=== PATIENT | male | born 1955 | race Caucasian/White ===

== ENCOUNTER 2021-01-10 14:57 | Emergency (ER) | payer MEDICARE, SELFPAY ==
--- NOTE | ~2021-01-10 | XR_ITS ---
Indication: Choking on foreign body EXAMINATION: Soft tissue neck and 2 view chest x-ray. Comparison chest film dated 08/03/2008 2 views of the soft tissue neck do not demonstrate convincing evidence for radiopaque foreign body. The glottis is within normal limits. 2 views of the chest do not demonstrate evidence for foreign body. No infiltrate or effusion. The cardiac silhouette is within normal limits. The hilar structures do not appear pathologically enlarged. There is no effusion. Flowing osteophytes in the thoracic spine. No compression injury XR/XR soft tissue neck IMPRESSION: No radiopaque foreign body is seen. The lung monsivais are grossly clear.
--- NOTE | ~2021-01-10 | XR_ITS ---
Indication: Choking on foreign body EXAMINATION: Soft tissue neck and 2 view chest x-ray. Comparison chest film dated 08/03/2008 2 views of the soft tissue neck do not demonstrate convincing evidence for radiopaque foreign body. The glottis is within normal limits. 2 views of the chest do not demonstrate evidence for foreign body. No infiltrate or effusion. The cardiac silhouette is within normal limits. The hilar structures do not appear pathologically enlarged. There is no effusion. Flowing osteophytes in the thoracic spine. No compression injury XR/XR chest 2V IMPRESSION: No radiopaque foreign body is seen. The lung monsivais are grossly clear.
[2021-01-10 15:05] VITALS: BP 130/90; BP 160/76; PULSE 75; PULSE 88; RESP 16; TEMP 36.8; O2SAT 97; O2SAT 99; BMI 33.9
[2021-01-10 15:42] VITALS: BP 160/76; PULSE 75; RESP 16; TEMP 36.8; O2SAT 97
--- NOTE | 2021-01-10 16:19 | PC.NURSE ---
pt from home via EMS. He [place], ate sweet peas and states one is stuck in his throat. He arrives alert, oriented, ambulatory. Lung sounds are clear bilaterally with no wheezing or stridor. He has been managing his own secretions and has an occasional cough that leads to gagging but has been non productive. Pt awaits eval
[2021-01-10 16:40] VITALS: BP 151/66; PULSE 65; RESP 15; O2SAT 97
[2021-01-10] MEDS: Lidocaine HCl Viscous 2 % 15 ML SOLUTION MUCOUS MEM (16:41)
--- NOTE | 2021-01-10 17:06 | ED.SKABFB ---
HPI - Skin/Abscess/Foreign Bdy General Chief complaint: General Medical Stated complaint: choked on a pea Time Seen by Provider: 01/10/21 16:19 Source: patient Mode of arrival: ambulatory Limitations: no limitations History of Present Illness HPI narrative: 65-year-old male presenting to the ED with complaints of questioning foreign body in his throat after he ate a handful of sweet pees prior to arrival. He reports he feels like it is Stuck in his throat. Denies any other symptoms complaints or concerns or injuries at this time. 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) Location: neck Severity: moderate Quality: foreign body sensation Pain Consistency: constant Relieving factors: none Exacerbating factors: other (swallowing ) Context: other (eating a sweet pea) Associated symptoms: denies other symptoms Treatments prior to arrival: none Related Data Allergies Allergy/AdvReac Type Severity Reaction Status Date / Time No Known Allergies Allergy Mild NOT Verified 01/10/21 15:04 APPLICABLE Review of Systems Review of Systems: Constitutional : No Fever, No Chills, Cardiovascular : No Chest Pain, No SOB Respiratory : No Dyspnea Gastrointestinal : No abdominal pain Musculoskeletal : No Joint Swelling Skin : positive Foreign body sensation in throat possibly a sweet Pea, No skin laceration, No rash, No surrounding erythema Neuro : No Weakness, No Numbness/tingling Psych : No SI/HI/thoughts of self injury Yes all other systems are reviewed and are negative [facility] Past Medical History Attestation statement: The following information was validated with the patient. Medical History Diabetes Heart attack HTN (hypertension) Social History Social History Alcohol intake: never Patient Tobacco Use Status: Never used Tobacco Smoked in Last 30 Days: No Use of substances other than those prescribed or required for medical reasons: No Advance Directives: No Advance Directives Information Provided: Yes Physical Exam Vital Signs: Vital Signs: Last Vital Signs Temp 98.2 F 01/10/21 15:42 Pulse 65 01/10/21 16:40 Resp 15 01/10/21 16:40 BP 151/66 H 01/10/21 16:40 Pulse Ox 97 01/10/21 16:40 Body Mass Index 33.9 vital signs have been reviewed as normal and appeared to be correct. Blood pressure hypertensive at 160/76. Heart rate normal. Respiration rate normal. Temperature normal. Oxygen saturation normal. Appearance: Alert. Oriented X3. No acute distress. Head: Normal external exam. Normocephalic. Atraumatic. Eyes: PERRLA. EOMI. Conjunctiva and sclera normal. Eyelids normal. ENT: no foreign bodies noted. Pharynx normal. Uvula midline. Moist mucous membranes. No trismus noted. No drooling noted. No muffled voice noted. Neck: Normal inspection. Neck supple. FROM. No adenopathy. Thyroid Normal. No meningeal signs. No neck mass noted. CVS: Normal heart rate and rhythm. Heart sound normal. Pulses normal throughout. No murmurs/rales/gallops. Respiratory: No respiratory distress. Painless inspiration. Breath sounds normal. No wheezes/rales/rhonchi noted. Chest nontender. No accessory muscle usage noted or decreased air movement noted. Abdomen: Soft and nontender. Bowel sounds normal in all 4 quadrants. No distention noted. No organomegaly noted. No visible injury noted. Back: Full range of motion noted. No rashes/lesion/induration/fluctuance or signs of infection noted. Skin: Skin warm and dry. Normal skin color. Normal skin turgor. No rashes/lesions/lacerations noted. Extremities: Extremities exhibit normal range of motion. Extremities nontender. Neuro: Oriented X 3. No motor deficit. No sensory deficit. Reflexes normal. Normal steady gait. No focal neuro deficits noted. Course Course Course Narrative: 65-year-old male presenting to the ED with complaints of a question of a foreign body of a sweet Pea in his throat after he ate a handful at the [employer]. on exam patient is alert and oriented x3. Tolerating his secretions well. Oxygen saturation is at 97% on room air. No trismus /drooling or foreign bodies noted. No wheezing or stridor is noted. Tolerating his secretions well. X-ray obtained and negative for any foreign bodies. Gave the patient viscous lidocaine and he reports mild symptomatic relief. Will DC home instructions return if any new or worsening symptoms to follow up with primary care provider. Patient understands agrees the plan. MDM - Skin/Abscess/Foreign Bdy Medical Records Attestation: I reviewed the patient's medical records. Imaging Data soft tissue neck/cxr: Attestation: I personally reviewed and interpreted this imaging study as follows: Radiologist's impression: Comparison chest film dated 08/03/2008 2 views of the soft tissue neck do not demonstrate convincing evidence for radiopaque foreign body. The glottis is within normal limits. 2 views of the chest do not demonstrate evidence for foreign body. No infiltrate or effusion. The cardiac silhouette is within normal limits. The hilar structures do not appear pathologically enlarged. There is no effusion. Flowing osteophytes in the thoracic spine. No compression injury XR/XR soft tissue neck IMPRESSION: No radiopaque foreign body is seen. The lung monsivais are grossly clear. Discharge Plan Discharge Clinical Impression: Normal exam Patient Disposition: Home, Self-Care Instructions: Normal Exam (ED), Foreign Body Ingestion (ED) Referrals: Physician,Unknown [Primary Care Provider] - 2 days (your pcp) Print Language: Yoruba
== END 2021-01-10 17:27 | disposition home or self-care (01) ==
PROVIDERS: Emergency Provider Emergency Medicine Emergency Medical Services
DX: Z03.89 Encounter for observation for other suspected diseases and conditions ruled out (principal)
CPT/HCPCS: 70360; 71046; 99283; 99284

== ENCOUNTER 2021-04-16 16:53 | Emergency (ER) | payer MEDICARE, SELFPAY ==
--- NOTE | ~2021-04-16 | XR_ITS ---
EXAMINATION: XR FOOT, LEFT CLINICAL INFORMATION: Redness. Evaluate for osteomyelitis. COMPARISON: No similar priors. TECHNIQUE: AP, lateral, and oblique views of the left foot. FINDINGS: There is asymmetric soft tissue edema in the medial surface of the foot without evidence of subcutaneous gas or radiopaque foreign bodies. There are subtle cortical irregularities in the base of the fifth metatarsal bone and first tarsometatarsal joint of uncertain etiology and possibly related with proliferative degenerative changes. No acute fractures. Joint alignment is anatomic. Calcaneal spurs. Vascular calcifications. XR/XR foot LT 2V IMPRESSION: Cortical irregularity within the base of the fifth metatarsal bone and first tarsometatarsal joint could be chronic and related with degenerative changes. However, superimposed infection is difficult to exclude. If clinical concerning for osteomyelitis remains elevated, consider further evaluation with a MRI of the left foot.
[2021-04-16 19:20] VITALS: BP 158/72; PULSE 73; RESP 20; TEMP 36.9; O2SAT 98; BMI 33.9
[2021-04-16 20:53] VITALS: BP 165/59; PULSE 67; RESP 20; TEMP 36.8; O2SAT 100
--- NOTE | 2021-04-16 21:54 | ED_ITS ---
HPI - General Adult General Chief complaint: Skin/Abscess/Foreign Body Stated complaint: Burn to left foot Source: patient Mode of arrival: ambulatory Limitations: no limitations History of Present Illness HPI narrative: Patient presents to the ED for evaluation of left foot burn. Patient states hot coffee fell on his left foot which caused a second degree burn and now has become reddened and painful.. Patient denies any fever or chills. Patient is diabetic. Related Data Previous Rx's Medication Instructions Recorded cephalexin 500 mg capsule 500 mg PO QID #28 cap 04/17/21 doxycycline hyclate 100 mg tablet 100 mg PO BID #14 tab 04/17/21 Allergies Allergy/AdvReac Type Severity Reaction Status Date / Time No Known Allergies Allergy Mild NOT Verified 01/10/21 15:04 APPLICABLE Review of Systems Review of Systems: Yes all other systems are reviewed and are negative Constitutional: Constitutional: Reports as per HPI and Reports no additional constitutional complaints Eyes: Eyes: Reports as per HPI and Reports no additional eye complaints ENT: Reports system reviewed and no additional complaints, except as documented and Reports as per HPI Cardiovascular: Cardiovascular: Reports as per HPI and Reports no additional cardiovascular complaints Respiratory: Respiratory: Reports as per HPI and Reports no additional respiratory complaints Gastrointestinal: Gastrointestinal: Reports as per HPI and Reports no additional gastrointestinal complaints Genitourinary: Genitourinary: Reports no additional male genitourinary complaints and Reports as per HPI Musculoskeletal: Musculoskeletal: Reports no additional musculoskeletal complaints and Reports as per HPI Comments: left foot burn Integumentary/Breasts: Skin/Breast: Reports system reviewed and no additional complaints, except as docu and Reports as per HPI Neurologic: Reports system reviewed and no additional complaints, except as documented and Reports as per HPI Psychiatric: Psychiatric: Reports no additional psychiatric complaints and Reports as per HPI [facility] Past Medical History Medical History Diabetes Heart attack HTN (hypertension) Social History Social History Alcohol intake: never Patient Tobacco Use Status: Never used Tobacco Advance Directives: No Physical Exam Vital Signs: Vital Signs: Last Vital Signs Temp 98.2 F 04/16/21 20:53 Pulse 67 04/16/21 20:53 Resp 20 04/16/21 20:53 BP 165/59 H 04/16/21 20:53 Pulse Ox 100 04/16/21 20:53 Body Mass Index 33.9 Const: General: cooperative, healthy appearing, comfortable, no acute distress, well developed, alert, awake and Physically active Orientation/consciousness: patient oriented x3 HENMT: Head: Yes normal to inspection, Yes No palpable skull fracture present, Yes normocephalic, Yes atraumatic and No abrasion Eyes: General: appearance normal, both eyes and all related structures Neck: Neck: Yes normal visual inspection, Yes full ROM, Yes no lym phadenopathy, Yes no meningeal signs, Yes trachea midline, Yes supple and No tender Chest: Chest palpation & inspection: normal inspection of the chest and normal palpation of entire chest wall Resp: Effort & Inspection: normal respiratory effort and able to speak in complete sentences Cardio: Jugular venous distension: no JVD Heart sounds: S1 normal heart sound present and S2 normal heart sound present GI: Inspection: Yes normal to inspection and No abdominal wall ecchymosis Palpation (GI): not firm, nontender, no guarding and not rigid : General: No CVA tenderness and Yes no CVA tenderness Back/Spine/Pelvis: Back: no CVA tenderness, No CVA tenderness and No back tenderness Skin: General skin exam: no rashes or lesions noted and elasticity normal Neuro: General: patient oriented x3, gait normal, no meningeal signs and CN's II-XI intact bilaterally Cranial nerves: Yes CN's II-XII intact bilaterally Extrem: Other: General: Yes normal to inspection and Yes full ROM Ankle/foot/toe images: 1. Area of redness. 2. Open blister with yellow collection. Vascular/motor/neuro exam of left lower extremity intact. Negative for redness and swelling of legs. Negative calf pain Psych: Appearance: grossly normal, well kempt and not disheveled Course Course Course Narrative: Plan eventually will be discharged with oral antibiotics. We will do x-ray to me does also myelitis. Vital signs are stable. Reevaluation(s) Reevaluation #1: X-ray showed osteomyelitis versus arthritis. Labs negative for elevated white blood cell count. CRP negative. ESR slightly elevated. Case was discussed with hospitalist Dr. Darling and was sent picture of patient's foot. She staes Due to patient having cellulitis from burn unlikely patient is having osteomyelitis due to normal white blood cell count and normal CRP. Recommends patient be discharged with p.o. antibiotics trial for and patient to return to the ED immediately if he worsens. Patient agreeable with plan. Time: 00:37 Medical Decision Making MDM Narrative Medical decision making narrative: Cellulitis. Burn Lab Data Result diagrams: 04/16/21 22:55 04/16/21 22:55 Labs: Lab Results 04/16/21 04/16/21 04/16/21 Range/Units 22:55 22:55 22:55 WBC 9.8 (4.8-10.8) X10*3/uL RBC 3.95 L (4.60-5.80) X10*6/uL Hgb 12.5 L (14.0-18.0) g/dl Hct 36.9 L (42-52) % MCV 93.4 (80-98) fL MCH 31.6 (27.0-33.0) pg MCHC 33.9 (31.0-36.0) g/dl RDW 13.1 (11.0-16.0) % Plt Count 213 (160-400) X10*3/uL MPV 10.1 (9.4-12.4) fL Immature Gran % (Auto) 0.3 (0.0-0.4) % Neut % (Auto) 54.9 (45-73) % Lymph % (Auto) 32.4 (20-40) % Scott % (Auto) 8.7 (2-11) % Eos % (Auto) 3.2 (0-4) % Baso % (Auto) 0.5 (0-2) % Lymph # (Auto) 3.2 (1.2-4.9) X10*3/uL Scott # (Auto) 0.9 (0.1-1.2) X10*3/uL Eos # (Auto) 0.3 (0.0-0.4) X10*3/uL Baso # (Auto) 0.1 (0.0-0.2) X10*3/uL Abs Immat Gran (auto) 0.03 (0.00-0.03) X10*3/uL Absolute Neuts (auto) 5.4 (2.0-8.3) X10*3/uL Absolute Nucleated RBC 0.000 (0.0-0.012) X10*3/uL Nucleated RBC % (auto) 0.0 (0.0-0.2) /100WBC ESR 25 H (0-15) MM/HR Sodium 139 (135-145) mmol/L Potassium 4.0 (3.3-5.1) mmol/L Chloride 105 (96-108) mmol/L Carbon Dioxide 27 (22-29) mmol/L Anion Gap 11 L (12-20) BUN 14 (9-16) mg/dL Creatinine 0.83 (0.5-1.4) mg/dL Estim Creat Clear Calc 113.8 Estimated GFR > 60 Random Glucose 103 (60-115) mg/dL Lactic Acid (0.5-2.0) mmol/L Calcium 9.3 (8.4-10.2) mg/dL Total Bilirubin 0.3 (0.0-1.0) mg/dL AST 18 (5-37) U/L ALT 24 (0-40) U/L Alkaline Phosphatase 89 (39-117) U/L C-Reactive Protein 0.37 (< or = 0.50) mg/dL Total Protein 6.8 (6.5-8.0) g/dL Albumin 4.3 (3.5-5.0) g/dL 04/16/21 Range/Units 22:55 WBC (4.8-10.8) X10*3/uL RBC (4.60-5.80) X10*6/uL Hgb (14.0-18.0) g/dl Hct (42-52) % MCV (80-98) fL MCH (27.0-33.0) pg MCHC (31.0-36.0) g/dl RDW (11.0-16.0) % Plt Count (160-400) X10*3/uL MPV (9.4-12.4) fL Immature Gran % (Auto) (0.0-0.4) % Neut % (Auto) (45-73) % Lymph % (Auto) (20-40) % Scott % (Auto) (2-11) % Eos % (Auto) (0-4) % Baso % (Auto) (0-2) % Lymph # (Auto) (1.2-4.9) X10*3/uL Scott # (Auto) (0.1-1.2) X10*3/uL Eos # (Auto) (0.0-0.4) X10*3/uL Baso # (Auto) (0.0-0.2) X10*3/uL Abs Immat Gran (auto) (0.00-0.03) X10*3/uL Absolute Neuts (auto) (2.0-8.3) X10*3/uL Absolute Nucleated RBC (0.0-0.012) X10*3/uL Nucleated RBC % (auto) (0.0-0.2) /100WBC ESR (0-15) MM/HR Sodium (135-145) mmol/L Potassium (3.3-5.1) mmol/L Chloride (96-108) mmol/L Carbon Dioxide (22-29) mmol/L Anion Gap (12-20) BUN (9-16) mg/dL Creatinine (0.5-1.4) mg/dL Estim Creat Clear Calc Estimated GFR Random Glucose (60-115) mg/dL Lactic Acid 1.2 (0.5-2.0) mmol/L Calcium (8.4-10.2) mg/dL Total Bilirubin (0.0-1.0) mg/dL AST (5-37) U/L ALT (0-40) U/L Alkaline Phosphatase (39-117) U/L C-Reactive Protein (< or = 0.50) mg/dL Total Protein (6.5-8.0) g/dL Albumin (3.5-5.0) g/dL Discharge Plan Discharge Clinical Impression: Cellulitis, Burn Patient Disposition: Home, Self-Care Instructions: Cellulitis (ED), Second Degree Burn (ED) Additional Instructions: You will be discharged with oral antibiotics. Became place bacitracin you have at the house on wound twice a day. Return to the ED immediately worsening pain, worsening redness, pus discharge, foul odor, fever, chills, red streaks, increased swelling, or any other concerning symptoms. Prescriptions: New cephalexin 500 mg capsule 500 mg PO QID Qty: 28 RF: 0 doxycycline hyclate 100 mg tablet 100 mg PO BID Qty: 14 RF: 0 Referrals: [facility] [Provider Group] - 2 days (Second degree burn with cellulitis.) Stand Alone Forms: Work/School Release Interventions: ED Discharge Assessment Last Done: 04/17/21 00:47 Discharge Date/Time: 04/17/21 00:50 Print Language: Vietnamese
[2021-04-16 23:06] LABS: MANUAL DIFF FLAG NO
[2021-04-16 23:09] LABS: Basophils Absolute Auto 0.1 X10*3/uL (0.0-0.2); Basophils Percent Auto 0.5 % (0-2); Eosinophils Absolute Auto 0.3 X10*3/uL (0.0-0.4); Eosinophils Percent Auto 3.2 % (0-4); Hematocrit 36.9 % (42-52); Hemoglobin 12.5 g/dl (14.0-18.0); Imm Gran Abs Auto 0.03 X10*3/uL (0.00-0.03); Imm Gran Pct Auto 0.3 % (0.0-0.4); Lymphocytes Absolute Auto 3.2 X10*3/uL (1.2-4.9); Lymphocytes Percent Auto 32.4 % (20-40); Mean Corpuscular HGB Conc 33.9 g/dl (31.0-36.0); Mean Corpuscular Hemoglobin 31.6 pg (27.0-33.0); Mean Corpuscular Volume 93.4 fL (80-98); Mean Platelet Volume 10.1 fL (9.4-12.4); Monocytes Absolute Auto 0.9 X10*3/uL (0.1-1.2); Monocytes Percent Auto 8.7 % (2-11); Neutrophils Absolute Auto 5.4 X10*3/uL (2.0-8.3); Neutrophils Percent Auto 54.9 % (45-73); Platelet Count 213 X10*3/uL (160-400); Red Blood Count 3.95 X10*6/uL (4.60-5.80); Red Cell Distribution Width 13.1 % (11.0-16.0); White Blood Count 9.8 X10*3/uL (4.8-10.8)
[2021-04-16 23:17] LABS: Lactic Acid 1.2 mmol/L (0.5-2.0)
[2021-04-16 23:23] LABS: Alanine Aminotransferase 24 U/L (0-40); Albumin Level 4.3 g/dL (3.5-5.0); Alkaline Phosphatase 89 U/L (39-117); Anion Gap 11 (12-20); Aspartate Amino Transferase 18 U/L (5-37); Bilirubin Total 0.3 mg/dL (0.0-1.0); Blood Urea Nitrogen 14 mg/dL (9-16); C Reactive Protein 0.37 mg/dL (< or = 0.50); Calcium 9.3 mg/dL (8.4-10.2); Carbon Dioxide 27 mmol/L (22-29); Chloride 105 mmol/L (96-108); Creatinine Clr Calc Pharmacy 113.8; Estimated Glomerular Filt Rate > 60; Glucose Random 103 mg/dL (60-115); Sodium 139 mmol/L (135-145); Total Protein 6.8 g/dL (6.5-8.0)
[2021-04-16 23:45] LABS: Erythrocyte Sedimentation Rate 25 MM/HR (0-15)
[2021-04-17] MEDS: cephALEXin 500 MG CAPSULE PO (00:36)
== END 2021-04-17 00:50 | disposition home or self-care (01) ==
PROVIDERS: Physician Assistant; Emergency Provider Internal Medicine; PCP Internal Medicine
DX: L03.116 Cellulitis of left lower limb (principal); T25.222A Burn of second degree of left foot, initial encounter; T31.0 Burns involving less than 10% of body surface; E11.9 Type 2 diabetes mellitus without complications; I10 Essential (primary) hypertension; X10.0XXA Contact with hot drinks, initial encounter; Y93.9 Activity, unspecified; Y92.9 Unspecified place or not applicable; Y99.9 Unspecified external cause status
CPT/HCPCS: 36415; 73620; 80053; 83605; 85025; 85652; 86140; 87040; 99283; 99284

== ENCOUNTER 2024-05-16 13:03 | Emergency (ER) | payer MEDICARE, SELFPAY ==
--- NOTE | ~2024-05-16 | XR_ITS ---
EXAMINATION: XR LUMBOSACRAL SPINE CLINICAL INFORMATION: Status post fall. Low back pain. COMPARISON: None available. TECHNIQUE: Three views of the lumbosacral spine. FINDINGS: No acute cortical disruption or gross trauma related malalignment. Multilevel syndesmophyte formation, marginal osteophyte formation, endplate sclerosis and decreased intervertebral disc height. No lytic or blastic lesions. XR/XR lumbar spine 2-3V IMPRESSION: Multilevel thoracolumbar spondylosis without acute fracture or trauma-related listhesis. Electronically signed by: Sae Chakraborty MD 05/16/2024 02:53 PM [facility]
--- NOTE | ~2024-05-16 | CT_ITS ---
EXAMINATION: CT HEAD WITHOUT CONTRAST CLINICAL INFORMATION: dizzy, fall COMPARISON: None available. TECHNIQUE: Contiguous axial imaging was performed from the skull base to vertex without intravenous administration of contrast. This CT examination was performed using dose optimization techniques as appropriate, variously including the following: *Automated exposure control *Adjustment of mA and/or kV according to patient size (this includes techniques or standardized protocols for targeted exams where dose is matched to indication/reason for exam; i.e. extremities or head) *Use of iterative reconstruction technique DLP: 777 mGy-cm FINDINGS: Limited by patient's motion artifact. Beam hardening artifact from the dental work. Bony calvarium is intact. Skull base is intact. No acute intracranial hemorrhage, mass effect, midline shift, hydrocephalus or herniation. Murphy-white matter differentiation is normal. Posterior cranial fossa contents demonstrated no acute intracranial hemorrhage or mass effect. Sellar/suprasellar region demonstrated no gross lesion. Prominence of the extra-axial CSF spaces cerebral sulci and ventricles. No air-fluid levels in the included paranasal sinuses. Tympanic cavities and mastoid cells are aerated. High riding right internal jugular bulb. Calcified plaques in the cavernous segments both ICAs hand the V4 segments. CT/CT head/brain wo IV con IMPRESSION: No acute intracranial hemorrhage. No acute fracture in the bony calvarium. Electronically signed by: Sae Chakraborty MD 05/16/2024 02:49 PM EST
--- NOTE | ~2024-05-16 | XR_ITS ---
EXAMINATION: XR KNEE, LEFT CLINICAL INFORMATION: Status post fall. COMPARISON: None available. TECHNIQUE: Four views of the left knee. FINDINGS: No acute cortical disruption or malalignment. Joint space narrowing involving the patellofemoral joint space. Exostosis at the quadriceps tendon insertion. Osteopenia versus osteoporosis. Vascular calcifications. No suprapatellar bursa joint effusion. XR/XR knee LT 4V IMPRESSION: No acute fracture or dislocation. Electronically signed by: Sae Chakraborty MD 05/16/2024 02:52 PM [facility]
[2024-05-16 13:06] VITALS: BP 138/70; PULSE 104; O2SAT 95
--- NOTE | 2024-05-16 13:06 | ED.GENADULT ---
HPI - General Adult General Chief complaint: Fall Stated complaint: Fall, no LOC, no HS Related Data Previous Rx's ?Medication ?Instructions ?Recorded cephalexin 500 mg capsule 500 mg PO QID #28 caps 04/17/21 doxycycline hyclate 100 mg tablet 100 mg PO BID #14 tabs 04/17/21 Allergies Allergy/AdvReac Type Severity Reaction Status Date / Time No Known Allergies Allergy Mild NOT Verified 05/16/24 13:27 APPLICABLE [facility] Past Medical History Medical History Diabetes Heart attack HTN (hypertension) Social History Social History Alcohol intake: never Patient Tobacco Use Status: Never used Tobacco Advance Directives: No Advance Directives Information Provided: No Do you have a plan to hurt others: No Plan Physical Exam ED Vital Signs: BMI result Body Mass Index 26.6 Course Course Course Narrative: This is a rapid medical exam performed by Diaz Blake NP: Additional HPI, ROS, PE not included below will be deferred to primary provider. Patient is a 69-year-old male T2DM, [place] in 2005 presenting with left knee injury after fall from standing at home. Got dizzy while smoking a cigar. Denies head strike or LOC, not anticoagulated. Plan: EKG, labs, L knee xray Medical Decision Making Lab Data 05/16/24 13:45 05/16/24 13:45 Labs: Lab Results 05/16/24 Range/Units 13:45 WBC 9.8 (4.8-10.8) X10*3/uL RBC 4.30 L (4.60-5.80) X10*6/uL Hgb 13.5 L (14.0-18.0) g/dl Hct 39.4 L (42.0-52.0) % MCV 91.6 (80.0-98.0) fL MCH 31.4 (27.0-33.0) pg MCHC 34.3 (31.0-36.0) g/dl RDW 13.8 (11.0-16.0) % Plt Count 194 (160-400) X10*3/uL MPV 9.7 (9.4-12.4) fL Immature Gran % (Auto) 0.3 (0.0-0.4) % Neut % (Auto) 75.3 H (45-73) % Lymph % (Auto) 15.0 L (20-40) % Harmon % (Auto) 8.5 (2-11) % Eos % (Auto) 0.5 (0-4) % Baso % (Auto) 0.4 (0-2) % Lymph # (Auto) 1.5 (1.2-4.9) X10*3/uL Harmon # (Auto) 0.8 (0.1-1.2) X10*3/uL Eos # (Auto) 0.1 (0.0-0.4) X10*3/uL Baso # (Auto) 0.0 (0.0-0.2) X10*3/uL Abs Immat Gran (auto) 0.03 (0.00-0.03) X10*3/uL Absolute Neuts (auto) 7.4 (2.0-8.3) x10*3/uL Absolute Nucleated RBC 0.000 (0.0-0.012) X10*3/uL Nucleated RBC % (auto) 0.0 (0.0-0.2) /100WBC Sodium 138 (135-145) mmol/L Potassium 3.9 (3.3-5.1) mmol/L Chloride 102 (96-108) mmol/L Carbon Dioxide 22 (22-29) mmol/L Anion Gap 18 (12-20) BUN 16 (9-16) mg/dL Creatinine 0.73 (0.5-1.4) mg/dL Estim Creat Clear Calc 104.8 Estimated GFR > 60 Random Glucose 164 H (60-115) mg/dL Calcium 9.3 (8.4-10.2) mg/dL Total Bilirubin 0.5 (0.0-1.0) mg/dL AST 37 (5-37) U/L ALT 26 (0-40) U/L Alkaline Phosphatase 115 (39-117) U/L Troponin I High Sens 11.8 (<3.5-35.0) ng/L Total Protein 7.0 (6.5-8.0) g/dL Albumin 4.2 (3.5-5.0) g/dL Discharge Plan Discharge Clinical Impression: Diagnosis unknown Patient Disposition: Left W/O Completing Treatment Prescriptions: No Action cephalexin 500 mg capsule 500 mg PO QID Qty: 28 0RF doxycycline hyclate 100 mg tablet 100 mg PO BID Qty: 14 0RF Discharge Date/Time: 05/16/24 20:35
--- NOTE | 2024-05-16 13:08 | ECG_ITS ---
Test Reason : lightkeaded Blood Pressure : / mmHG Vent. 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
[2024-05-16 13:25] VITALS: BP 153/55; PULSE 97; RESP 16; TEMP 37.7; O2SAT 98; BMI 26.6
[2024-05-16 13:48] LABS: MANUAL DIFF FLAG NO
[2024-05-16 13:50] LABS: Basophils Percent Auto 0.4 % (0-2); Eosinophils Absolute Auto 0.1 X10*3/uL (0.0-0.4); Eosinophils Percent Auto 0.5 % (0-4); Hematocrit 39.4 % (42.0-52.0); Hemoglobin 13.5 g/dl (14.0-18.0); Imm Gran Abs Auto 0.03 X10*3/uL (0.00-0.03); Imm Gran Pct Auto 0.3 % (0.0-0.4); Lymphocytes Absolute Auto 1.5 X10*3/uL (1.2-4.9); Mean Corpuscular HGB Conc 34.3 g/dl (31.0-36.0); Mean Corpuscular Hemoglobin 31.4 pg (27.0-33.0); Mean Corpuscular Volume 91.6 fL (80.0-98.0); Mean Platelet Volume 9.7 fL (9.4-12.4); Monocytes Absolute Auto 0.8 X10*3/uL (0.1-1.2); Monocytes Percent Auto 8.5 % (2-11); Neutrophils Absolute Auto 7.4 x10*3/uL (2.0-8.3); Neutrophils Percent Auto 75.3 % (45-73); Platelet Count 194 X10*3/uL (160-400); Red Cell Distribution Width 13.8 % (11.0-16.0); White Blood Count 9.8 X10*3/uL (4.8-10.8)
[2024-05-16 14:07] LABS: Alanine Aminotransferase 26 U/L (0-40); Albumin Level 4.2 g/dL (3.5-5.0); Alkaline Phosphatase 115 U/L (39-117); Anion Gap 18 (12-20); Aspartate Amino Transferase 37 U/L (5-37); Bilirubin Total 0.5 mg/dL (0.0-1.0); Blood Urea Nitrogen 16 mg/dL (9-16); Calcium 9.3 mg/dL (8.4-10.2); Carbon Dioxide 22 mmol/L (22-29); Chloride 102 mmol/L (96-108); Creatinine Clr Calc Pharmacy 104.8; Estimated Glomerular Filt Rate > 60; Glucose Random 164 mg/dL (60-115); Potassium 3.9 mmol/L (3.3-5.1); Sodium 138 mmol/L (135-145)
[2024-05-16 14:14] LABS: Troponin-I High Sensitivity 11.8 ng/L (<3.5-35.0)
--- NOTE | 2024-05-16 15:08 | PC.NURSE ---
pT REPORTING THAT HE'S NOT GOING TO WAIT ANYMORE. HAS BEEN ASSISTED TO URINATE IN WR BR EARLIER. ENCOURAGED TO STAY FOR FULL ASSESSMENT. HAS A TREMOR WHICH PATIENT ATTRIBUTES TO FALL THIS AM. HASN'T HAD ETOH IN 6 MONTHS.
--- NOTE | 2024-05-16 20:35 | PC.NURSE ---
no answer from WR at [id number]
== END 2024-05-16 20:35 | disposition left against medical advice (07) ==
LOC: HO.ED 20:34
PROVIDERS: Registered Nurse Emergency; Emergency Provider Emergency Medicine
DX: S09.90XA Unspecified injury of head, initial encounter (principal); R42 Dizziness and giddiness; R94.31 Abnormal electrocardiogram [ECG] [EKG]; M25.562 Pain in left knee; M54.50 Low back pain, unspecified; W01.0XXA Fall on same level from slipping, tripping and stumbling without subsequent striking against object, initial encounter; Y93.89 Activity, other specified; Y92.89 Other specified places as the place of occurrence of the external cause; Y99.8 Other external cause status; Z79.899 Other long term (current) drug therapy
CPT/HCPCS: 36415; 70450; 72100; 73564; 80053; 84484; 85025; 93005; 99283; 99284

== ENCOUNTER → 2024-05-16 13:07 | Outpatient (BNV) | payer MEDICARE, SELFPAY | PROVIDERS: Visit Provider Radiology Diagnostic Radiology | DX: M54.50 Low back pain, unspecified (principal); R42 Dizziness and giddiness | CPT/HCPCS: 70450; 72100; 73564 ==

== ENCOUNTER → 2024-05-16 13:08 | Outpatient (BNV) | payer MEDICARE, SELFPAY | PROVIDERS: Visit Provider Internal Medicine Cardiovascular Disease | DX: R42 Dizziness and giddiness (principal); R94.31 Abnormal electrocardiogram [ECG] [EKG] | CPT/HCPCS: 93010 ==

== ENCOUNTER 2024-10-31 14:38 | Outpatient (AMB) | payer MEDICARE, SELFPAY ==
[2024-10-31 14:39] VITALS: BP 110/56; PULSE 54; O2SAT 96; BMI 29.2
--- NOTE | 2024-10-31 14:39 | MHC.PC.OV ---
Vital Signs 10/31/24 14:39 Height 6 ft Weight 215 lb 2 oz BMI 29.2 BP 110/56 L Blood Pressure Location Lt brachial Position Sitting Pulse 54 Pulse Source Pulse Oximeter Pulse Oximetry (%) 96 Oxygen Delivery Method Room Air Intake Visit Reasons: establish care [employer] Worker Required: No Accompanied by: Self / Same As Patient Allergies No Known Allergies Allergy (Mild, Verified 10/31/24 15:12) NOT APPLICABLE Medication List - Last Reconciled 10/31/24 by Nicholas Kaba MD amlodipine 10 mg PO DAILY atorvastatin 40 mg PO DAILY ibuprofen 800 mg PO TID lorazepam 0.5 mg PO BID PRN metformin ER 500 mg PO BID metoprolol succinate ER 12.5 mg PO DAILY nitroglycerin 0.4 mg sublingual DAILY tramadol 50 mg PO TID PRN Tobacco use date assessed: 10/31/24 Fall risk assessment: No Falls in past year Last assessed Fall Risk: 10/31/24 Dental Screening Dental Screen Date: 10/31/24 Did you have a dental visit in the last 12 months?: No Did you have a dental problem in the last 6 months where you did not have access to dental care?: No Was dental information given to patient?: No [facility] Medical History (Updated 10/31/24 @ 15:21 by Nicholas Kaba MD) Myocardial infarction Coronary atherosclerosis Essential hypertension Diabetes mellitus Surgical History (Updated 10/31/24 @ 15:23 by Nicholas Kaba MD) History of arthroplasty of right knee Status post reverse total arthroplasty of left shoulder Social History Housing: Apartment Alcohol intake: never Patient Tobacco Use Status: Never used Tobacco e-Cigarette/Vaping Use: Never Used Second Hand Smoke Exposure: No service: Yes Current occupational status: employed Current occupational exposures/hazards: No Cognitive needs: No Hearing needs: No Vision needs: No Questionnaire PHQ-9 Over the last 2 weeks, how often have you been bothered by any of the following problems? 1. Little interest or pleasure in doing things: not at all 2. Feeling down, depressed, or hopeless: not at all 3. Trouble falling or staying asleep, or sleeping too much: several days 4. Feeling tired or having little energy: not at all 5. Poor appetite or overeating: not at all 6. Feeling bad about yourself - or that you are a failure or have let yourself or your family down: not at all 7. Trouble concentrating on things, such as reading the newspaper or watching television: not at all 8. Moving or speaking so slowly that other people could have noticed. Or the opposite - being so fidgety or restless that you have been moving around a lot more than usual: not at all 9. Thoughts that you would be better off or of hurting yourself in some way: not at all Total score: 1 Depression Screening Interpretation: Negative Depression Screening Done: Yes 04792 - PHQ-9 Billing: Yes Source: Developed by Drs. Marcus Velázquez, Lanny Hernandez, Linus Almanza and colleagues, with an educational ameena from [employer]. Thrive Questionnaire Date Thrive assessed: 10/31/24 I am a: Patient What is your living situation today?: I have a steady place to live Within the past 12 months, did the food you bought not last and you didn't have the money to get more?: Often true Within the past 12 months, did you worry whether your food would run out before you got money to buy more?: Never true Do you have trouble paying for medicines?: No Do you have trouble getting transportation to medical appointments?: No Do you have trouble paying your heating and electricity bill?: No Do you have trouble taking care of your child, family member or friend?: No Do you have trouble with day-to-day activities such as bathing, preparing meals, shopping, managing finances, etc.?: No Are you currently unemployed and looking for a job?: No Are you interested in more education?: No Please select the resources that you would like help with: None Currently or been in a relationship where the following occur: No concerns reported THRIVE Score: 1 AUDIT C Alcohol Use Questionnaire (AUDIT-C) 1. How often do you have a drink containing alcohol?: Monthly or less 2. How many drinks containing alcohol do you have on a typical day when you are drinking?: 1 or 2 3. How often do you have six or more drinks on one occasion?: Never Total Score: 1 Score Reviewed/Action Taken: Yes ADOLFO-7 AMB Questionnaire ADOLFO-7 Date ADOLFO - 7 assessed: 10/31/24 Feeling nervous, anxious, or on edge: 0 = Not at all Not being able to stop or control worryin = Not at all Worrying too much about different things: 0 = Not at all Trouble relaxin = Not at all Being so restless that it is hard to sit still: 0 = Not at all Becoming easily annoyed or irritable: 0 = Not at all Feeling afraid as if something awful might happen: 0 = Not at all Total ADOLFO-7 score (0-4 normal; 5-9 mild; 10-14 moderate; 15-21 severe): 0 Source: Developed by Drs. Marcus Velázquez, Lanny Hernandez, Linus Almanza and colleagues, with an educational ameena from [employer]. Physical exam (Primary Care) Vital Signs: Last Vital Signs Pulse 54 10/31/24 14:39 BP 110/56 L 10/31/24 14:39 Pulse Ox 96 10/31/24 14:39 Oxygen Delivery Method Room Air 10/31/24 14:39 BMI result Body Mass Index 29.2 Tobacco/Smoking Status: Tobacco use Status Tobacco use date assessed 10/31/24 10/31/24 14:43 Patient Tobacco Use Status Never used Tobacco 10/31/24 14:43 e-Cigarette/Vaping Use Never Used 10/31/24 14:52 PHQ-9: PHQ-9 Score PHQ-9: Total score 1 10/31/24 15:07 Depression Screening Interpretation: Negative Thrive Assessment: Date of Thrive Assessment Date Thrive assessed 10/31/24 10/31/24 14:43 Currently or been in a relationship where the following occur: No concerns reported Results AMB Hemoglobin A1c AMB Hemoglobin A1c 6.0 % Last Edit by KATIE Stone on 10/31/24 15:07 Results Reviewed Results Reviewed: Laboratory Last Values Hgb A1c (Clinic) 6.0 % (4.0-6.0) 10/31/24 14:52 Coding Additional Codes PHQ-9 - 57917 - PHQ-9 Billing: Yes ([id number]) Assessment & Plan Assessment & Plan Orders: Orders AMB Hemoglobin A1c Today Z13.9 - Encounter for screening, unspecified Complete Blood Count Auto Diff Today D64.9 - Anemia, unspecified, Z00.00 - Encounter for general adult medical examination without abnormal findings Lipid Panel Today E78.00 - Pure hypercholesterolemia, unspecified, Z00.00 - Encounter for general adult medical examination without abnormal findings TSH reflex Free T4 Today E78.00 - Pure hypercholesterolemia, unspecified, Z00.00 - Encounter for general adult medical examination without abnormal findings Microalbumin, Random (w Creat) Today E11.9 - Type 2 diabetes mellitus without complications, Z00.00 - Encounter for general adult medical examination without abnormal findings Comprehensive [place]. Panel Fast Today E78.00 - Pure hypercholesterolemia, unspecified, Z00.00 - Encounter for general adult medical examination without abnormal findings UA CC w/rflx Micro + Cult Today R30.0 - Dysuria, Z00.00 - Encounter for general adult medical examination without abnormal findings Vitamin D 25-OH Total Today E55.9 - Vitamin D deficiency, unspecified, Z00.00 - Encounter for general adult medical examination without abnormal findings Medications: New metformin ER 500 mg PO QPM 90 days 90 tabs 1RF
--- OUTSIDE RECORDS SUMMARY | 2024-10-31 17:29 | XMS_ITS | Clinical Summary ---
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 11/03/19 24 Active amLODIPine (NORVASC) 10 mg tablet Take 1 tablet (10 mg total) by mouth 1 (one) time each day. 09/24/19 24 Active aspirin 81 mg EC tablet 1 TABLET DAILY Activ e cholecalcifero l (VITAMIN D-3) 5,000 Units tablet Take 1 tablet (5,000 Units total) by mouth 1 (one) time each day. 02/05/20 23 Active omega 8-hlj-ley-fish oil (Fish OiL) 1,200 (144-216) mg capsule 2 tabs daily Active flaxseed powder 2 tbsp daily Active hydrOXYzine HCL (ATARAX) 25 mg tablet Take 1 tablet (25 mg total) by mouth every 8 (eight) hours if needed for anxiety. 10/27/19 24 Active ibuprofen (ADVIL,MOTRIN) 800 mg tablet Take 1 tablet by mouth every 8 hours for 30 days. 09/12/19 22 Active metFORMIN (GLUCOPHAGE) 500 mg tablet Take 1 tablet (500 mg total) by mouth 2 (two) times a day with meals. 07/28/19 24 Active metoprolol succinate (TOPROL-XL) 25 mg 24 hr tablet Take 0.5 tablets (12.5 mg total) by mouth 1 (one) time each day. 01/11/20 24 Active MULTIVITAMIN ORAL 1 tab daily Active sildenafiL (VIAGRA) 25 mg tablet Take 1 Tablet by mouth daily as needed for Erectile Dysfunction (not to exceed 1 dose per day). 03/11/20 Active zolpidem (AMBIEN) 5 mg tablet Take 1 tablet (5 mg total) by mouth at bedtime as needed (for Insomnia.). 10/27/19 24 Active atorvastatin (LIPITOR) 40 mg tablet TAKE 1 TABLET BY MOUTH DAILY 90 tablet 10/06/19 25 Active atorvastatin (LIPITOR) 40 mg tablet Take 1 tablet (40 mg total) by mouth at bedtime. 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 (01/19/23) COVID-19 06/16/2022 Abdominal aortic ectasia ([facility] V24) Overview (06/28/2024): 2.2 cm proximal segment of proximal aorta (03/11/21); PCP recommends repeat in 1 year Microalbuminuria 10/25/2020 Type II diabetes mellitus wi th renal manifestations ([facility] V24, [facility] V28) 10/25/2020 Obesity (BMI 30.0-34.9) 10/25/2020 Panic disorder 09/26/2018 Major depressive disorder, r ecurrent severe without psychotic features ([facility] V24, [facility] V28) 09/26/2018 Hypertension 09/18/2010 Coronary artery disease 09/07/2008 Overview (06/28/2024): [employer] Team Member is Dr. Feliciano, [facility] November/2006, hundred percent right coronary artery, underwent stenting with two stents, 75% LAD lesion not stented. Recent hospitalization for atypical chest pain July/2008 at [facility] and had negative nuclear stress test Hyperlipidemia 09/07/2008 Colon polyp 09/07/2008 Depression 09/07/2008 Overview (06/28/2024): Followed by psychiatry, significant stress, recent divorce, sister with metastatic colon carcinoma Dysphasia 09/07/2008 Overview (06/28/2024): Underwent extensive GI evaluation by Dr. Pranav Barlow, upper endoscopy completely normal, he felt this was most likely related to stress Immunizations Name Administration Dates Next Due Influenza Quadravalent, MDCK , 0.5ml, preservative free (Flucelvax) 6mo and older 05/18/2018 Influenza Quadravalent, MDCK , 0.5ml, with preservative (Flucelvax) 6mo and older 07/14/2017 Influenza trivalent, 0.5mL ( Fluad) 65yo and older 05/11/2022,06/23/2021,05/30/2020 Influenza trivalent, 0.5mL, preservative free (Fluarix; FluLaval; Fluzone) ages 6mo and older (Afluria) 3 years and older 06/23/2019,07/03/2016,04/12/2015,2013,05/05/2013,07/01/2012,04/21/2011,0 04/09/2009 Influenza, Unspecified 06/23/2019 Pfizer SARS-CoV-2 COVID-19, mRNA, LNP-S, preservative free 07/02/2021 Pneumococcal conjugate 13 va lent (Prevnar 13, PCV13) 2mo and older 02/18/2021 Td Tetanus diptheria (Tdvax) 7yo and older 02/18/2021 Tdap Tetanus diptheria acell ular pertussis (Boostrix; Adacel) 7yo and older 08/28/2009 Surgical History Surgery Date Site/Laterality Comments HERNIA REPAIR 2003 PROCEDURE: HISTORICAL HERNIA REPAIR/ING KNEE SURGERY 2009 Right PROCEDURE: HISTORICAL KNEE SURGERY; COMMENT: TKR OTHER SURGICAL HISTORY PROCEDURE: GUIDEWIRE,PTCA,HI-TORQUE LEG SURGERY 1981 Left PROCEDURE: HISTORICAL LEG SURGERY; COMMENT: TIB/FIB fracture OTHER SURGICAL HISTORY 2018 PROCEDURE: LA LAPAROSCOPY COLECTOMY PARTIAL W/ANASTOMOSIS; COMMENT: laparscopic hand-assisted left colectomy; Dr. Almaraz Medical History Medical History Date Comments Heart disease, unspecified DX:He art disease, unspecified Historical Medical DX 09/07/2008 DX:HTN Type 2 diabetes mellitus (CM S/HCC V24, [facility] V28) 03/24/2013 DX:Type 2 diabetes mellitus (HCC) Hypertension 09/18/2010 DX:Hypertension Diabetes mellitus type 2, co ntrolled, without complications (CMS/HCC V24, [facility] V28) 03/24/2013 DX:Diabetes mellitus type 2, controlled, without complications (HCC) Family History Medical History Relation Name Comments Lung cancer Father Colon cancer Maternal Grandmother CABG Mother Cataracts Mother Colon cancer Sister 1 developed in he r late 40s Other: Other Sister 2 lymphoma Blindness Neg Hx Glaucoma Neg Hx Macular degeneration Neg Hx Strabismus Neg Hx Relation Name Status Comments Father (Age 62) lung cance r Maternal Grandmother Mother Alive cabg age 70, pa ncreatitis Sister 1 Sister 2 Sister 3 Alive colon cancer Social History Tobacco Use Types Packs/Day Years Used Date Smoking Tobacco: Former Cigarettes Q uit: 07/12/1974 Smokeless Tobacco: Never Alcohol Use Standard Drinks/Week Comments Yes 0.8 (1 standard drink = 0.6 oz p ure alcohol) Sex and Gender Information Value Date Recorded Sex Assigned at Not on file Legal Sex Male 11:36 AM EST Gender Identity Not on file Sexual Orientation Not on file Obstetrics History Last Filed Vital Signs Vital Sign Reading Time Taken Comments Blood Pressure 120/60 11/03/2023 2:56 PM EDT Pulse 70 11/03/2023 2:56 PM EDT Temperature - - Respiratory Rate - - Oxygen Saturation - - Inhaled Oxygen Concentration - - Weight 95.7 kg (211 lb) 07/26/2024 12:51 PM EST Height 182.9 cm (6') 11/08/2023 3:16 PM EDT Body Mass Index 28.62 11/08/2023 3:16 PM EDT Plan of Treatment Health Maintenance Due Date Last Done Comments Diabetes: Annual Foot Exam 1965 Diabetes: Annual Retina Eye Exam 1965 Zoster Vaccines (1 of 2) 2005 RSV Immunization Adult Patients (1 - Risk 60-74 years 1-dose series) 2015 Falls Risk Assessment 06/20/2022 Social Influencers of Health Screening 06/20/2022 Diabetes: Annual Urine Albumin-Creatinine Ratio (uACR) 11/17/2023 11/16/2022 Diabetes: Blood Sugar Control Test (HGBA1C) 12/29/2023 06/29/2023 COVID-19 Vaccine ( - season) 2024 07/02/2021, 10/21/2020, 09/30/2020 Depression Screening 06/29/2024 06/29/2023 Diabetes: Annual GFR (Glomerular Filtration Rate) 06/29/2024 06/29/2023 Hypertension/CHF/CAD Annual BMP Blood Test 06/29/2024 06/29/2023 Medicare Annual Wellness Visit 06/29/2024 06/29/2023 Influenza Vaccine (Season Ended) 2025 05/11/2022, 06/23/2021, 05/30/2020, Additional history exists Cholesterol Screening (Lipid Panel) 11/17/2027 11/16/2022 DTaP,Tdap,and Td Vaccines (4 - Td or Tdap) 12/28/2033 12/29/2023, 02/18/2021, 08/28/2009 Colorectal Cancer Screening: Colonoscopy 02/08/2034 02/09/2024 Hepatitis C Screening Completed 03/09/2013 Abdominal Aortic Aneurysm (AAA) Screen Completed 03/11/2021 Pneumococcal Vaccine: 50+ Years Completed 12/29/2023, 02/18/2021, 02/19/2020 HIB Vaccines Aged Out No longer eligi ble based on patient's age to complete this topic HPV Vaccines Aged Out No longer eligi ble based on patient's age to complete this topic Hepatitis A Vaccines Aged Out No long er eligible based on patient's age to complete this topic Hepatitis B Vaccines Aged Out No long er eligible based on patient's age to complete this topic IPV Vaccines Aged Out No longer eligi ble based on patient's age to complete this topic MMR Vaccines Aged Out No longer eligi ble based on patient's age to complete this topic Meningococcal ACWY Vaccine Aged Out N o longer eligible based on patient's age to complete this topic Meningococcal B Vaccine Aged Out No l onger eligible based on patient's age to complete this topic RSV Immunization Patients Under 20 months Aged Out No longer eligible based on patient's age to complete this topic Varicella Vaccines Aged Out No longer eligible based on patient's age to complete this topic Procedures Procedure Name Priority Date/Time Associated Diagnosis Comments COLONOSCOPY Routine 02/09/2024 DEPRESSION SCREENING Routine 06/29/2023 ANNUAL BMP BLOOD TEST Routine 06/29/2023 HEMOGLOBIN A1C Routine 06/29/2023 URINE ALBUMIN CREATININE RATIO Routine 11/16/2022 LIPID PANEL Routine 11/16/2022 ABDOMINAL AORTIC ANEURYSM SCRREN Routine 03/11/2021 HEPATITIS C SCREENING Routine 03/09/2013 from Last 3 Months or Most Recently Relevant to Health Maintenance Results * Colonoscopy (02/09/2024) [facility] Colonoscopy no interpretation , abstracted Anatomical Region Laterality Modality Other Result [facility] Provider HEALTH MAINTENANCE Final Result * Annual BMP Blood Test (06/29/2023) [facility] Annual BMP Blood Test abstracted Result [facility] Provider HEALTH MAINTENANCE Final Result * Depression Screening (06/29/2023) [facility] Depression Screening abstracted Result [facility] Provider HEALTH MAINTENANCE Final Result * (ABNORMAL) Hemoglobin A1c (06/29/2023) [facility] Hemoglobin A1C 8.7(A) <=6.5 % Blood Venous blood specimen / Unknown Result [facility] Provider LAB BLOOD ORDERABLES Latisha l Result * Urine Albumin Creatinine Ratio (11/16/2022) [facility] Urine Albumin Creatinine Ratio abstracted Result [facility] Provider HEALTH MAINTENANCE Final Result * (ABNORMAL) Lipid panel (11/16/2022) [facility] LDL/HDL Ratio 2 0 - 4 Triglycerides 185(A) 0 - 150 mg/dL Cholesterol 128 0 - 200 mg/dL HDL 53 >=40 mg/dL LDL Cholesterol 38 0 - 100 mg/dL Blood Venous blood specimen / Unknown [facility] Provider LAB BLOOD ORDERABLES Latisha l Result * Abdominal Aortic Aneurysm Screen (03/11/2021) [facility] Abdominal Aortic Aneurysm (AAA) Screening abstracted Anatomical Region Laterality Modality Other [facility] Provider HEALTH MAINTENANCE Final Result * Hepatitis C Screening (03/09/2013) [facility] Hepatitis C Screening abstracted [facility] Provider HEALTH MAINTENANCE Final Result from Last 3 Months or Most Recently Relevant to Health Maintenance Insurance [employer]
--- OUTSIDE RECORDS SUMMARY | 2024-10-31 17:29 | XMS_ITS | Data Portability ---
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 Sheppard who was available but who did not see the patient. Clinical Update: Patient has done well symptoms are starting to resolve with course of physical therapy and other medications were in the meantime he has had a shoulder surgery on the left which she had to postpone his current therapy for his right knee HPI: Simon presents to the office today for a recheck of his right knee. He is status post right total knee arthroplasty performed in 2010. He was last evaluated by one of my colleagues on 04/06/2023. At that time he had a significantly increased CRP and sedimentation rate but also was on antibiotics for foot infection. Once he was off the antibiotics for a couple of weeks the knee was aspirated for fluid results are negative for infection. He presents today due to persistent and worsening knee pain. He describes his pain as being along the medial aspect of the joint. Pain is worse with weightbearing activities. He denies any instability. He discussed a bone scan at his last visit and would like to proceed with this imaging study. PMH/PSH/MEDS/ALL/FM H/SOC HX/ROS are reviewed in detail per my medical intake sheet. General Exam: Vital signs are as noted below Mental status: Alert and lucid. Normal insight, affect and grooming. POLYMER SPECIALIST: Gross motor coordination is intact. No spasticity or clonus noted. EXAMINATION: The patient is well appearing and in no apparent distress. Alert and oriented x3. Gait is antalgic. Right knee reveals a surgical scar over the anterior knee, otherwise no deformity upon inspection. No joint effusion, edema, erythema, ecchymosis, or lesions. Neurovascularly intact. Tenderness present along the medial knee, more so at the MCL femoral insertion. ROM is 0-115? ? ?. Pain is present at end range. No crepitus noted. Stability intact with anterior, posterior, and varus/valgus stress at both 0 and 30 degrees of flexion. No pain with stress testing. 5/5 strength. Calf/leg compartments soft and compressible. Right hip exam reveals painless passive range of motion. No instability. 5/5 strength. X-rays ordered, obtained and reviewed at [facility] today include 3 views of the right knee. Images reveal total knee arthroplasty components to be in good position and without evidence of loosening. No change when compared to prior films. IMPRESSION: Painful right total knee arthroplasty with pes bursitis PLANPatient at this point wants pursue injection is not getting any better conservative managementRAfter explaining risks and benefits, under meticulous aseptic technique,R knee pes bursitiswas injected with, 1cc of celestone and 2 cc of Lidocaine 1%. Patient tolerated the procedure well. Post injection precautions reviewed. They will continue with conservative options icing elevating. They will follow up as discussed [email or web address] Not available 11/16/2023 13:16:04 01/17/2024 01/17/2024 Dx:status post l eft rTSA 07/14/2023 Interval History:a comes in, complains of left shoulder pain which flared over the past feww days, had an awkward reaching maneuver at an [facility] which started this pain. SocHx: nonsmoker, nondrinker Past Medical/Surgical History/Meds/Allerg ies reviewed and charted ROS: negative Physical Exam: afebrile, vital signs stable, in no apparent distress, oriented to person/place/time. Gait symmetric. Skin intact without erythema. Heart RRR Lungs: clear Abdomen soft, nontender. leftSHOULDER: no redness, warmth, deformity. Range of motion active 120/30/3 with midrange soreness. Strength 5/5 all muscle groups. Apprehension negative. Impingement sign negative. Acromioclavicular joint nontender without irritability with cross body adduction. Neurovascular Exam wnl. Contralateral SHOULDER: no redness, warmth, deformity. Range of motion full in all planes with no stiffnes. Strength 5/5 all muscle groups. Apprehension negative. Impingement sign negative. Acromioclavicular joint nontender without irritability to cross body adduction. Neurovascular Exam wnl. New Studies: 4 views, well-positioned implant Impression:status post left rTSA Plan: 1.patient reassured, physical therapy initiated, low suspicion for infection, follow-up in 2 weeks to assess progress. [employer] speech recognition tongue trimmer software was used to create portions of this document. An attempt at proofreading has been made to minimize errors. Please call for corrections. [email or web address] Not available 01/17/2024 12:04:11 05/01/2024 05/01/2024 Dx:Left rTSA 07/14/2023 Interval History:Doing well, minimal pain though he did have a fall about a month ago. SocHx: nonsmoker, nondrinker Past Medical/Surgical History/Meds/Allerg ies reviewed and charted ROS: negative Physical Exam: afebrile, vital signs stable, in no apparent distress, oriented to person/place/time. Gait symmetric. Skin intact without erythema. Heart RRR Lungs: clear Abdomen soft, nontender. LeftSHOULDER: no redness, warmth, deformity. Range of motionActive 150/30/30 with good mechanics Neurovascular Exam wnl. New Studies: 4 views left shoulder, short stem in good position, no complications, no fracture Impression:Status post left rTSA Plan: 1.Questions answered, precautions reviewed, follow-up with me in 1 year with new x-rays [employer] speech recognition tongue trimmer software was used to create portions of this document. An attempt at proofreading has been made to minimize errors. Please call for corrections. [email or web address] Not available 05/01/2024 13:41:49 10/04/2024 10/04/2024 am seeing the patient today under the supervision of Dr. Sheppard who was available but who did not see the patient. Clinical Update: Patient has done well symptoms are starting to resolve with course of physical therapy and other medications were in the meantime he has had a shoulder surgery on the left which she had to postpone his current therapy for his right knee HPI: Simon presents to the office today for a recheck of his right knee. He is status post right total knee arthroplasty performed in 2010. He was last evaluated by one of my colleagues on 04/06/2023. At that time he had a significantly increased CRP and sedimentation rate but also was on antibiotics for foot infection. Once he was off the antibiotics for a couple of weeks the knee was aspirated for fluid results are negative for infection. He presents today due to persistent and worsening knee pain. He describes his pain as being along the medial aspect of the joint. Pain is worse with weightbearing activities. He denies any instability. He discussed a bone scan at his last visit and would like to proceed with this imaging study. PMH/PSH/MEDS/ALL/FM H/SOC HX/ROS are reviewed in detail per my medical intake sheet. General Exam: Vital signs are as noted below Mental status: Alert and lucid. Normal insight, affect and grooming. POLYMER SPECIALIST: Gross motor coordination is intact. No spasticity or clonus noted. EXAMINATION: The patient is well appearing and in no apparent distress. Alert and oriented x3. Gait is antalgic. Right knee reveals a surgical scar over the anterior knee, otherwise no deformity upon inspection. No joint effusion, edema, erythema, ecchymosis, or lesions. Neurovascularly intact. Tenderness present along the medial knee, more so at the MCL femoral insertion. ROM is 0-115? ? ?. Pain is present at end range. No crepitus noted. Stability intact with anterior, posterior, and varus/valgus stress at both 0 and 30 degrees of flexion. No pain with stress testing. 5/5 strength. Calf/leg compartments soft and compressible. Right hip exam reveals painless passive range of motion. No instability. 5/5 strength. X-rays ordered, obtained and reviewed at [facility] today include 3 views of the right knee. Images reveal total knee arthroplasty components to be in good position and without evidence of loosening. No change when compared to prior films. IMPRESSION: Painful right total knee arthroplasty with pes bursitis PLANPatient at this point wants pursue injection is not getting any better conservative managementRAfter explaining risks and benefits, under meticulous aseptic technique,R knee pes bursitiswas injected with, 1cc of celestone and 2 cc of Lidocaine 1%. Patient tolerated the procedure well. Post injection precautions reviewed. They will continue with conservative options icing elevating. They will follow up as discussed [email or web address] Not available 10/04/2024 13:31:11 Plan of Treatment Reminders Order Date Submit Date Provider Last Modified By Organization Details Last Modified Time Details Appointments None recorded. Lab None recorded. Referral None recorded. Procedures None recorded. Surgeries None recorded. Imaging XR, shoulder, 2 or more view - room 6, left shoulder 2023 024 [email or web address] [facility], [address], [address], [place], [address], 4 14:45:38 XR, shoulder, 2 or more view - L shoulder rTSA corsetti 4 view 211 2023 024 [email or web address] [facility], [address], [address], [place], [address], 4 08:35:35 Medication Orders ibuprofen 800 mg tablet 2024 025 [email or web address] [facility] hint #[id number], [address], [place], [id number], 5 15:29:12 tramadol 50 mg tablet 2024 025 [facility] hint #[id number], [address], [place], [id number], 5 13:31:45 Patient TargetsNo targets recorded. Patient InstructionsNo instructions recorded. Reason for Referral None Reported. Results Created Date Observation Date Name Description Value Unit Range Abnormal Flag Note LastModifiedBy Organization Detail LastModifiedTime 01/17/20 24 01/17/2024 XR, shoul nilton, 2 or more view [email or web address] ?Encry pted=s hAKonstantin YD8dLq bEUv6g %2BXZw aYqtaq 0bqfl% 2Fg9IQ a4ajBk vP9nXo QUaueC m3YtLR FvZlgJ JJ8mAn HZtai3 7y2862 AC0Kpa XqGVaT eUC8mr 84%3D INTERFACE [facility] [address], [place], [address], 01/17/2024 11:57:58 01/17/20 24 01/17/2024 XR, bradlyul nilton, 2 or more view [email or web address] ?Encry pted=s hAaTro YD8dLq bEUv6g %2BXZw aYqtaq 0bqfl% 2Fg9IQ a4ajBk vP9nXo QUaueC m3YtLR FvZlgJ JJ8mAn HZtai3 5b6242 AC0Kpa XqGVaT eUC8mr 84%3D INTERFACE [facility] [address], [place], [address], 01/17/2024 11:58:01 03/10/20 24 06/28/2023 imagi ng/di agnos tic resul t No observ ation record ed. [email or web address] Not Available 02/11 05:37:38 03/10/20 24 06/02/2023 imagi ng/di agnos tic resul t No observ ation record ed. [email or web address] Not Available 02/11 05:37:42 05/01/20 24 05/01/2024 XR, shanda nilton, 2 or more view [email or web address] ?Encry pted=s hAaTro YD8dLq bEUv6g %2BXZw aYqtaq 0bqfl% 2Fg9IQ a4ajBk vP9nXo QUaueC m3YtLR FvZlgJ JJ8mAn HZtai3 0t2062 AC0Kqa 3WMVKW uKiQtr MwF INTERFACE [facility] [address], [place], [address], 05/01/2024 11:41:08 05/01/20 24 05/01/2024 shanda CHENG, 2 or more view [email or web address]:/ [email or web address] ?Encry pted=s hAaTro YD8dLq bEUv6g %2BXZw aYqtaq 0bqfl% 2Fg9IQ a4ajBk vP9nXo QUaueC m3YtLR FvZlgJ JJ8mAn HZtai3 6z3376 AC0Kqa 3WMVKW uKiQtr MwF INTERFACE [facility] [address], [place], [address], 05/01/2024 11:41:10 Result Notes None recorded. Problems Name Problem SNOMED Code Status Onset Date Resolution Date Notes Provider Name and Address Organization Details Recorded Time Pes anserinus bursitis of right knee 47127366630433 09 Active 2023 Josef Fuentes PA-C [address], [place], [address], [facility] 4 10:10:08 Problem Notes None recorded. Procedures Surgical History Date Name Laterality Status Provider Name and Address Organization Details Recorded Time 4 62188 Therapeutic Exercise (1:1) completed Jimi Pyser, PT [address], [place], [address], [facility] 10/18/2023 10:57:53 4 50896: Hot or Cold Pack completed Jimi Pyser, PT [address], [place], [address], [facility] 10/18/2023 10:57:53 4 94787: Manual therapy completed Jimi Pyser, PT [address], [place], [address], [facility] 10/18/2023 10:57:53 4 37687 Therapeutic Exercise (1:1) cancelled Jimi Pyser, PT [address], [place], [address], [facility] 10/13/2023 21:05:30 4 64216: Hot or Cold Pack cancelled Jimi Pyser, PT [address], [place], [address], [facility] 10/13/2023 21:05:30 4 03463: Manual therapy cancelled Jimi Pyser, PT [address], [place], [address], [facility] 10/13/2023 21:05:30 4 25818 Therapeutic Exercise (1:1) completed Jimi Pyser, PT [address], [place], [address], [facility] 10/11/2023 21:01:04 4 18346: Hot or Cold Pack completed Jimi Pyser, PT [address], [place], [address], [facility] 10/11/2023 21:01:04 4 11597: Manual therapy completed Jimi Pyser, PT [address], [place], [address], [facility] 10/11/2023 21:01:04 4 41954 Therapeutic Exercise (1:1) completed Natasha Villarreal, MARKET RESEARCH MANAGER [address], [place], [address], [facility] 10/07/2023 15:31:31 4 42939: Hot or Cold Pack completed Natasha Villarreal, MARKET RESEARCH MANAGER [address], [place], [address], [facility] 10/07/2023 15:31:31 4 03086: Manual therapy completed Natasha Villarreal, MARKET RESEARCH MANAGER [address], [place], [address], [facility] 10/07/2023 15:31:31 4 14879 Therapeutic Exercise (1:1) completed Rolando Ojedari, MARKET RESEARCH MANAGER [address], [place], [address], [facility] 10/06/2023 13:40:42 4 88601: Hot or Cold Pack completed Rolando Ojedari, MARKET RESEARCH MANAGER [address], [place], [address], [facility] 10/06/2023 13:40:42 4 88237: Manual therapy completed Rolando Juniorfuri, MARKET RESEARCH MANAGER [address], [place], [address], [facility] 10/06/2023 13:40:42 4 36771 Therapeutic Exercise (1:1) cancelled Natasha Villarreal, MARKET RESEARCH MANAGER [address], [place], [address], [facility] 09/28/2023 07:18:02 4 78720: Hot or Cold Pack cancelled Natasha Villarreal, MARKET RESEARCH MANAGER [address], [place], [address], [facility] 09/28/2023 07:18:02 4 44962: Manual therapy cancelled Natasha Villarreal, MARKET RESEARCH MANAGER [address], [place], [address], [facility] 09/28/2023 07:18:02 4 23015 Therapeutic Exercise (1:1) completed Natasha Villarreal, MARKET RESEARCH MANAGER [address], [place], [address], [facility] 09/27/2023 10:50:25 4 02795: Hot or Cold Pack completed Natasha Hey, MARKET RESEARCH MANAGER [address], [place], [address], [facility] 09/26/2023 11:37:18 4 06579: Manual therapy completed Natasha Villarreal, MARKET RESEARCH MANAGER [address], [place], [address], [facility] 09/26/2023 11:37:18 4 33282 Therapeutic Exercise (1:1) completed Jimi Pyser, PT [address], [place], [address], [facility] 09/24/2023 09:55:43 4 66722: Hot or Cold Pack completed Jimi Pyser, PT [address], [place], [address], [facility] 09/23/2023 10:11:26 4 22096: Manual therapy completed Jimi Pyser, PT [address], [place], [address], [facility] 09/24/2023 09:56:03 4 74311 Therapeutic Exercise (1:1) completed Jimi Pyser, PT [address], [place], [address], [facility] 09/22/2023 10:58:35 4 74976: Hot or Cold Pack completed Jimi Pyser, PT [address], [place], [address], [facility] 09/22/2023 10:59:06 Imaging Results Imaging Date Name Status LastModified by [facility] Details LastModified Time 01/17/2024 XR, shoulder, 2 or more view completed [facility] [address], [place], [address], 01/17/2024 11:57:58 01/17/2024 XR, shoulder, 2 or more view completed [facility] [address], [place], [address], 01/17/2024 11:58:01 06/28/2023 imaging/diag nostic result completed Information not available 03/10/2024 05:37:38 06/02/2023 imaging/diag nostic result completed Information not available 03/10/2024 05:37:42 05/01/2024 XR, shoulder, 2 or more view completed [facility] [address], [place], [address], 05/01/2024 11:41:08 05/01/2024 XR, shoulder, 2 or more view completed [facility] [address], [place], [address], 05/01/2024 11:41:10 Procedure Notes None recorded. Medical Equipment None Reported. Allergies No known drug allergies Medications Name Sig Start Date Stop Date Status Note LastModified by Organization Details LastModified Time amoxicillin 500 mg capsule TAKE 4 CAPSULES BY MOUTH 1 HOUR BEFORE PROCEDURE 10/03 completed Not Available Not Available Not Available atorvastati n 40 mg tablet TAKE 1 TABLET BY MOUTH DAILY active Not Available Not Available No t Available metformin 500 mg tablet TAKE 1 TABLET BY MOUTH TWICE DAILY WITH MEALS active Not Available Not Available No t Available diclofenac 3 % topical gel APPLY 2 TO 3 GRAMS TOPICALLY TO THE AFFECTED AREA TWICE DAILY DIRECTED 04/26 completed Not Available Not Available Not Available ibuprofen 800 mg tablet TAKE 1 TABLET BY MOUTH THREE TIMES DAILY active Not Available Not Available No t Available tizanidine 4 mg tablet TAKE 1 TABLET BY MOUTH EVERY 8 HOURS NEEDED 04/26 completed Not Available Not Available Not Available citalopram 10 mg tablet TAKE 2 TABLETS BY MOUTH DAILY 09/29 completed Not Available Not Available Not Available sulfamethox azole 800 mg-trimetho prim 160 mg tablet TAKE 1 TABLET BY MOUTH TWICE DAILY FOR 10 DAYS 09/29 completed Not Available Not Available Not Available sildenafil 25 mg tablet TAKE 1 TABLET BY MOUTH DAILY NEEDED FOR ERECTILE DYSFUNCTI ON. NOT TO EXCEED 1 DOSE DAILY active Not Available Not Available No t Available doxycycline monohydrate 100 mg tablet TAKE 1 TABLET BY MOUTH TWICE DAILY FOR 10 DAYS 09/29 completed Not Available Not Available Not Available tramadol 50 mg tablet TAKE 1 TABLET BY MOUTH EVERY 6 HOURS AFTER MEALS active Not Available Not Available No t Available acetaminoph en ER 650 mg tablet,exte nded release TAKE 1 TABLET BY MOUTH EVERY 8 HOURS NEEDED FOR PAIN active Not Available Not Available No t Available lorazepam 0.5 mg tablet TAKE 1 TABLET BY MOUTH 30 MINUTES PRIOR TO FLIGHT AND 2ND TABLET IF NEEDED NEEDED FOR ANXIETY active Not Available Not Available No t Available amlodipine 10 mg tablet TAKE 1 TABLET BY MOUTH DAILY active Not Available Not Available No t Available cephalexin 500 mg capsule TAKE 1 CAPSULE BY MOUTH THREE TIMES DAILY WITH MEALS FOR 10 DAYS 09/29 completed Not Available Not Available Not Available erythromyci n 5 mg/gram (0.5 %) eye ointment APPLY 1 CENTIMETE R IN RIGHT EYE EVERY 4 HOURS WHILE AWAKE FOR 7 DAYS 09/29 completed Not Available Not Available Not Available pseudoephed rine-guaife nesin ER 80-700 mg tablet,exte nded release 1-2 TABS PO Q 4-6HRS PRN PAINDO NOT DRIVE WHILE ON THIS MEDICATIO N active Not Available Not Available No t Available lidocaine 5 % topical patch APPLY 1 PATCH BY TOPICAL ROUTE ONCE DAILY (MAY WEAR UP TO 12HOURS.) 2023 active Not Available Not Available Not Avai lable nitroglycer in 0.4 mg sublingual tablet 10/18 completed Not Available Not Available Not Available hydroxyzine HCl 25 mg tablet TAKE 1 TABLET BY MOUTH EVERY 8 HOURS NEEDED FOR ANXIETY 10/03 completed Not Available Not Available Not Available diclofenac sodium 50 mg tablet,fernando yed release TAKE 1 TABLET BY MOUTH TWICE DAILY WITH FOOD NEEDED. DO NOT TAKE WITH IBUPROFEN 09/29 completed Not Available Not Available Not Available zolpidem 5 mg tablet TAKE 1 TABLET BY MOUTH AT BEDTIME NEEDED FOR INSOMNIA 10/03 completed Not Available Not Available Not Available metoprolol succinate ER 25 mg tablet,exte nded release 24 hr TAKE 1/2 TABLET BY MOUTH DAILY active Not Available Not Available No t Available methylpredn isolone 4 mg tablets in a dose pack FOLLOW PACKAGE DIRECTION S 09/29 completed Not Available Not Available Not Available sertraline 50 mg tablet TAKE 1 TABLET BY MOUTH DAILY 09/29 completed Not Available Not Available Not Available cholecalcif jo-ann (vitamin D3) 125 mcg (5,000 unit) capsule TAKE 1 TABLET BY MOUTH DAILY 09/29 completed Not Available Not Available Not Available amoxicillin 875 mg-potassiu m clavulanate 125 mg tablet TAKE 1 TABLET BY MOUTH TWICE DAILY FOR 10 DAYS 09/29 completed Not Available Not Available Not Available oxycodone 5 mg tablet TAKE 1 TABLET BY MOUTH EVERY 4 TO 6 HOURS NEEDED 09/29 completed Not Available Not Available Not Available neomycin 3.5 mg/g-polymy hossein B 10,000 unit/g-dexa meth 0.1 % eye oint APPLY TO LEFT UPPER AND LOWER LID THREE TIMES DAILY 09/29 completed Not Available Not Available Not Available diclofenac sodium as directed apply 2-3gm to affected area bid 06/21 completed Statu s: 'Disc ontin ued'; Not Available Not Available Not Available oxycodone HCl-oxycodo ne-ASA 1 every 4 - 6 hours as needed 07/30 completed Statu s: 'Disc ontin ued'; Not Available Not Available Not Available GaviLyte-G 236 gram-22.74 gram-6.74 gram-5.86 gram oral solution MIX AND DRINK 8 OUNCES DIRECTED BY DOCTOR 04/26 completed Not Available Not Available Not Available Vitals Date Recorded Body height Body mass index (BMI) Body weight Provider Name and Address Organization Details Last Updated DateTime 11/11/2023 177.8 cm 32.3 kg/m2 598678.28 g KAILEY APPIAH [facility] 11/11/2023 12:56:29 Date Recorded Body height Body mass index (BMI) Body weight Provider Name and Address Organization Details Last Updated DateTime 11/16/2023 177.8 cm 32.3 kg/m2 497110.28 g DON BLACK [facility] 11/16/2023 12:47:22 Date Recorded Body height Body mass index (BMI) Body weight Provider Name and Address Organization Details Last Updated DateTime 01/17/2024 177.8 cm 32.3 kg/m2 003087.28 g TAWANDA WILLIS [facility] 01/17/2024 11:51:10 Date Recorded Body height Body mass index (BMI) Body weight Provider Name and Address Organization Details Last Updated DateTime 05/01/2024 177.8 cm 32.3 kg/m2 030089.28 g Ophelia Castillo [facility] 05/01/2024 11:29:42 Date Recorded Body height Body mass index (BMI) Body weight Provider Name and Address Organization Details Last Updated DateTime 10/04/2024 177.8 cm 32.3 kg/m2 190395.28 g Lucio Berry [facility] 10/04/2024 13:03:54 Social History None recorded. Functional Status None recorded. Mental Status None recorded. Family History Nothing Reported. Medical History Condition Response Allergies/Hayfever N Coronary Artery Disease N Anxiety/Depression N Emphysema N Thyroid Problems N COPD N Pacemaker N Kidney/Bladder Problems N Anemia N Vascular Disease N Gastrointestinal Disease N Heart Attack (MD) N Diabetes Y Autoimmune disease N Bleeding Disorder N Orthotics N Arthritis Y Seizures/Epilepsy N Blood Clot N AIDS/HIV N Congestive Heart Failure (CHF) N Acid Reflux (GERD) N Cancer N Stroke N Asthma N Peripheral Vascular Disease N Sleep Apnea N Hepatitis N Heart Disease N Rheumatoid Arthritis N Arrhythmia N Pulmonary Embolism N Fibromyalgia N Hypertension Y Osteoporosis N Past Encounters Encounter ID Performer Location Encounter Start Date Encounter Closed Date Diagnosis/Indication Diagnosis SNOMED-CT Code Diagnosis ICD10 Code Diagnosis Note [id number] Jimi Pyser, PT [facility] [address] [place] [address] 09/22/2023 09:52:03 09/22/2023 14:42:45 Aftercare [id number] Z47.1 History of reverse prosthetic total arthroplasty of left shoulder 0164675893 [id number] Z96.436 [id number] Jimi Pyser, PT [facility] [address] [place] [address] 09/24/2023 08:37:21 09/24/2023 11:28:25 Aftercare [id number] Z47.1 History of reverse prosthetic total arthroplasty of left shoulder 0688441159 7352081 Z96.523 [id number] Jimi Pyser, PT [facility] [address] [place] [address] 09/27/2023 09:41:04 09/27/2023 10:48:37 Aftercare [id number] Z47.1 History of reverse prosthetic total arthroplasty of left shoulder 9449558159 [id number] 96.127 [id number] Jagdeep Saldana MD [facility] [address] [place] [address] 09/30/2023 12:44:33 09/30/2023 17:06:45 Osteoarthritis of left glenohumeral joint 8616100539 650307 M19.249 [id number] Josef Fuentes PA-C [facility] [address] [place] [address] 10/07/2023 09:50:09 10/07/2023 10:24:56 Pes anserinus bursitis of right knee [id number] 706776 M70.51 [id number] Chuck Ríos, PT [facility] [address] [place] [address] 10/06/2023 11:32:36 10/06/2023 13:56:57 Aftercare 913687210 Z47.1 History of reverse prosthetic total arthroplasty of left shoulder 7295245046 3152695 96.432 [id number] Chuck Ríos, PT [facility] [address] [place] [address] 10/08/2023 10:21:18 10/08/2023 11:00:29 Aftercare 255669500 Z47.1 History of reverse prosthetic total arthroplasty of left shoulder 1685184716 [id number] Z96.695 [id number] Jimi Maxser, PT [facility] [address] [place] [address] 10/12/2023 08:23:09 10/12/2023 09:31:44 Aftercare 578870509 Z47.1 History of reverse prosthetic total arthroplasty of left shoulder 6609885392 8502549 Z96.606 [id number] Jimi Pyser, PT [facility] [address] [place] [address] 10/18/2023 12:26:47 10/18/2023 13:14:43 Aftercare 748102501 Z47.1 History of reverse prosthetic total arthroplasty of left shoulder 8235370943 9862562 Z96.850 [id number] Jimi Pyser, PT [facility] [address] [place] [address] 10/21/2023 15:40:16 10/21/2023 16:50:34 Aftercare [id number] [facility].1 History of reverse prosthetic total arthroplasty of left shoulder 9008510043 3126275 Z96.360 [id number] Jimi Pyser, PT [facility] [address] [place] [address] 10/27/2023 14:37:02 10/27/2023 15:40:50 Aftercare [id number] [facility].1 History of reverse prosthetic total arthroplasty of left shoulder 1429130915 8962016 Z96.487 [id number] Jimi Pyser, PT [facility] [address] [place] [address] 11/04/2023 13:41:59 11/04/2023 15:34:10 Aftercare [id number] [facility].1 History of reverse prosthetic total arthroplasty of left shoulder 5884919364 0100674 Z96.582 [id number] [facility] [address] [place] [address] 11/16/2023 12:45:13 12/08/2023 14:36:48 Pes anserinus bursitis of right knee 8399616564 500065 M70.51 [id number] Jimi Pyser, PT [facility] [address] [place] [address] 11/10/2023 10:39:56 11/10/2023 11:36:40 Aftercare [id number] [facility].1 History of reverse prosthetic total arthroplasty of left shoulder 4797242319 7268972 Z96.457 [id number] [facility] [address] [place], [place] [address] 11/11/2023 12:33:00 12/01/2023 08:30:45 Shoulder joint prosthesis present 172604096 Z96.433 [id number] Jagdeep Saldana MD [facility] [address] [place] [address] 01/17/2024 10:54:02 02/01/2024 08:35:35 History of reverse prosthetic total arthroplasty of left shoulder 2900730519 5970558 Z96.644 [id number] Jagdeep Saldana MD [facility] [address] [place] [address] 05/01/2024 10:52:15 05/22/2024 14:45:38 Pain of left shoulder region 4155711875 M25.734 [id number] [facility] [address] [place] [address] 10/04/2024 12:27:33 10/17/2024 13:37:44 Pes anserinus bursitis of right knee 3323735652 [id number] M70.51 Health Concerns Section Related Observation LastModified by Organization Detai ls LastModified Time None Recorded Concern Status LastModified by Organization Details LastModified Time None Recorded Advance Directives Directive None Recorded Payers Encounter Date Sequence Insurance Name Policy Number Policy Muir Covered Member ID Muir Member ID Guarantor Name 11/16/2023 [facility] [employer] Edward E [place] 05/01/2024 [place] [employer] Edward E [place] 10/04/2024 [facility] [employer] Edward E [place] Notes Date Note Type Note Provider Name and Address Organization Details Recorded Time 11/11/2023 text/html I am seeing the patient today under the supervision of Dr. Lemus who was available but who did not see the patient.Ed return status post left reverse total shoulder arthroplasty performed in July by Dr. Saldana. Doing quite well and has been discharged from formal therapy.Past family, medical, social history and review of systems has been reviewed, updated and signed by me and is located in the patient? s chart.Examination : Well-healed incision. Active for elevation 150? ? ?, abduction 90, external rotates 60, internal rotation 70. Deltoid fires nicely. 2+ pulses distallyImpression : Near 4 months status post left reverse total shoulder arthroplasty doing wellPlan: Reviewed and discussed continue home exercise program. At this time he would be eligible to return to work where he has a permanent restriction of 25 pound weight limit with any pushing, pulling, carrying or lifting. This will most likely result in him not being allowed to return to work. At this time he is at maximum medical improvement, since weight restriction placed on him today will not change. Pan Paige PA-C [address], [place], [address], [facility] 11/11/2023 13:42:52
== END 2024-10-31 15:26 | disposition home or self-care (01) ==
LOC: HO.HMCH 14:39
PROVIDERS: PCP Internal Medicine; Visit Provider Internal Medicine
DX: Z13.9 Encounter for screening, unspecified (principal)

== ENCOUNTER → 2024-10-31 14:38 | Outpatient (BNVA) | payer MEDICARE, SELFPAY | PROVIDERS: PCP Internal Medicine; Visit Provider Internal Medicine | DX: E11.9 Type 2 diabetes mellitus without complications (principal); I25.10 Atherosclerotic heart disease of native coronary artery without angina pectoris; I10 Essential (primary) hypertension; E78.00 Pure hypercholesterolemia, unspecified; F41.9 Anxiety disorder, unspecified; E66.3 Overweight; Z68.29 Body mass index [BMI] 29.0-29.9, adult | CPT/HCPCS: 83036; 96127; 99387 ==